=== PATIENT | male | born 1985 | race Caucasian/White ===

== ENCOUNTER 2018-02-25 11:04 | Outpatient (CLI) | payer OTHER | END 2018-02-25 11:05 | disposition home or self-care (01) | LOC: SC 11:04 | PROVIDERS: ATTEND Internal Medicine Pulmonary Disease | DX: G47.10 Hypersomnia, unspecified (principal); R06.83 Snoring; G47.8 Other sleep disorders | CPT/HCPCS: 99203; 99212 ==

== ENCOUNTER 2018-04-01 20:25 | Outpatient (CLI) | payer OTHER | END 2018-04-01 20:26 | disposition home or self-care (01) | LOC: SC 20:25 | PROVIDERS: ATTEND Internal Medicine Pulmonary Disease | DX: R06.83 Snoring (principal); G47.61 Periodic limb movement disorder | CPT/HCPCS: 95810 ==

== ENCOUNTER 2018-04-14 15:25 | Outpatient (CLI) | payer OTHER | END 2018-04-14 15:26 | disposition home or self-care (01) | LOC: SC 15:25 | PROVIDERS: ATTEND Internal Medicine Pulmonary Disease | DX: G47.10 Hypersomnia, unspecified (principal) | CPT/HCPCS: 99212; 99213 ==

== ENCOUNTER 2018-05-20 09:11 | Outpatient (CLI) | payer OTHER | END 2018-05-20 09:12 | disposition home or self-care (01) | LOC: SC 09:11 | PROVIDERS: ATTEND Internal Medicine Pulmonary Disease | DX: G47.10 Hypersomnia, unspecified (principal) | CPT/HCPCS: 99212; 99213 ==

== ENCOUNTER 2019-07-24 07:43 | Emergency (ER) | payer OTHER ==
--- NOTE | 2019-07-24 07:57 | ED Physician Documentation ---
PD HPI CHEST PAIN - Stated complaint Stated Complaint: CHEST PX/SOA - Chief complaint Chief Complaint: General - History obtained from History obtained from: Patient - History of Present Illness Timing - onset: Last night (Onset in bed without any noted trauma of pain in the right side of the chest worse with deep breathing. It increased today. He has had a little bit of congestion and mild cough but not feeling really sick per se. The pain increased today and is hurting on the right side into his back. He denies any prior similar episodes.) Timing - onset during: Sleep, Rest Timing - details: Gradual onset, Still present Quality: Aching, Sharp, Pain Location: Substernal, Right chest Radiation: Neck (right side), Back Improved by: Rest, Other (sitting up) Worsened by: Inspiration, Movement, Position (lying flat is worse) Associated symptoms: Shortness of air, Cough. No: Nausea, Vomiting, Feeling faint / dizzy, Palpitations Similar symptoms before: Has not had sx before Recently seen: Not recently seen Review of Systems Constitutional: denies: Fever, Chills, Myalgias Nose: reports: Congestion. denies: Rhinorrhea / runny nose Throat: denies: Sore throat Respiratory: reports: Cough (mild overnight into today) GI: denies: Abdominal Pain, Nausea, Vomiting Skin: denies: Rash Neurologic: denies: Generalized weakness, Near syncope, Headache PD PAST MEDICAL HISTORY - Past Medical History Cardiovascular: None Respiratory: None Endocrine/Autoimmune: None GI: None : None HEENT: Chronic sinusitis Psych: None Musculoskeletal: Chronic back pain Derm: None - Past Surgical History Ortho: Other - Present Medications Home Medications: Ambulatory Orders Medication Instructions Recorded Confirmed Cetirizine [ZyrTEC] 10 mg PO DAILY 03/27/17 03/27/17 Duloxetine HCl 60 mg PO BID 03/27/17 03/27/17 Magnesium Oxide [Magnesium] 500 mg PO DAILY 03/27/17 03/27/17 Pregabalin [Lyrica] 150 mg PO BID 03/27/17 03/27/17 Dextroamphetamine/Amphetamine 15 mg PO 07/24/19 [Adderall 15 mg Tablet] Hydrocodone/Acetaminophen [[place] 1 each PO Q6H PRN #15 tablet 07/24/19 5-325 Tablet] Naproxen 375 mg PO BID #20 tablet 07/24/19 Verapamil [[place]] 120 mg PO BID 07/24/19 07/24/19 dexAMETHasone [Decadron] 4 mg PO DAILY #5 tablet 07/24/19 - Allergies Allergies/Adverse Reactions: Allergies Allergy/AdvReac Type Severity Reaction Status Date / Time No Known Drug Allergies Allergy Verified 07/24/19 07:48 - Family History Family history: denies: Aortic aneursym, Aortic dissection PD ED PE NORMAL - Vitals Vital signs reviewed: Yes - General General: Alert and oriented X 3, Well developed/nourished, Other (appears uncomfortable with breathing) - HEENT HEENT: Moist mucous membranes, Pharynx benign - Neck Neck: Supple, no meningeal sign, No adenopathy, No JVD, No bruit - Cardiac Cardiac: No murmur. No: RRR (tachycardic without murmur nor rub) - Respiratory Respiratory: Clear bilaterally, Other (guarded/splinted breathing. ) - Abdomen Abdomen: Soft, Non tender - Male Male : Deferred - Rectal Rectal: Deferred - Back Back: No CVA TTP - Derm Derm: Normal color, Warm and dry - Extremities Extremities: No tenderness to palpate, Normal ROM s pain - Neuro Neuro: Alert and oriented X 3, No motor deficit, Normal speech Results - Vitals Vitals: Vital Signs - 24 hr 07/24/19 07/24/19 07/24/19 07:45 08:29 09:31 Temperature 36.9 C Heart Rate 126 H 117 H 123 H Respiratory 18 13 20 Rate Blood Pressure 128/106 H 145/101 H 127/90 H O2 Saturation 96 95 96 07/24/19 10:11 Temperature Heart Rate 120 H Respiratory 17 Rate Blood Pressure 132/89 H O2 Saturation 94 Oxygen O2 Source Room air - EKG (time done) 08:01 Rate: Rate (enter#) (121) Rhythm: Sinus tachycardia [place]: Normal Intervals: Normal [facility] QRS: Normal Ischemia: Normal ST segments. No: ST elevation c/w ischemia, ST depression - Labs Labs: Laboratory Tests 07/24/19 07/24/19 07/24/19 08:20 08:20 08:20 WBC 13.2 H RBC 4.50 L Hgb 13.8 L Hct 41.1 L MCV 91.3 MCH 30.7 MCHC 33.6 RDW 12.3 Plt Count 332 MPV 9.2 Neut # (Auto) 10.9 H Lymph # (Auto) 1.3 L [place] # (Auto) 0.9 Eos # (Auto) 0.1 Baso # (Auto) 0.1 Absolute Nucleated RBC 0.00 Nucleated RBC % 0.0 D-Dimer Sodium 135 Potassium 4.1 Chloride 101 Carbon Dioxide 23 Anion Gap 11.0 BUN 16 Creatinine 0.8 Estimated GFR (MDRD) 111 Glucose 109 H Calcium 8.9 Total Bilirubin 0.5 AST 25 ALT 22 Alkaline Phosphatase 57 Troponin I High Sens < 2.3 L Total Protein 7.4 Albumin 4.2 Globulin 3.2 Albumin/Globulin Ratio 1.3 Lipase 30 07/24/19 08:20 WBC RBC Hgb Hct MCV MCH MCHC RDW Plt Count MPV Neut # (Auto) Lymph # (Auto) [place] # (Auto) Eos # (Auto) Baso # (Auto) Absolute Nucleated RBC Nucleated RBC % D-Dimer < 200.0 L Sodium Potassium Chloride Carbon Dioxide Anion Gap BUN Creatinine Estimated GFR (MDRD) Glucose Calcium Total Bilirubin AST ALT Alkaline Phosphatase Troponin I High Sens Total Protein Albumin Globulin Albumin/Globulin Ratio Lipase - Rads (name of study) chest xray Radiology: Prelim report reviewed (normal), See rad report PD MEDICAL DECISION MAKING - ED course Complexity details: reviewed results (EKG and chest x-ray are normal. He is tachycardic but not hypoxic. His heart rate improves after some pain medicine. His troponin is normal. D-dimer is also negative. I have no more serious causes to consider at this time. I presume some pleurisy related to his recent cough and congestion. At this point there is no signs of myocarditis, AR, pneumothorax, effusion, pneumonia, PE or vascular process.), considered differential, d/w patient Departure - Departure Disposition: 01 Home, Self Care Clinical Impression: Pleuritic chest pain Condition: Stable Record reviewed to determine appropriate education?: Yes Instructions: ED Chest Pain Pleurisy Follow-Up: FRANCESCA PHILIPPE DO [Primary Care Provider] - Prescriptions: dexAMETHasone [Decadron] 4 mg PO DAILY #5 tablet Hydrocodone/Acetaminophen [[place] 5-325 Tablet] 1 each PO Q6H PRN #15 tablet PRN Reason: Pain Naproxen 375 mg PO BID #20 tablet Comments: Presume some inflammation or irritation of either the lung surface (pleurisy) or musculoskeletal in the chest. These would be treated with anti-inflammatories (naproxen nonsteroidal anti-inflammatory and Decadron steroid) over the short- term being several days to week. Add Tylenol or hydrocodone if needed for pain. Activity as tolerated based on comfort. Recheck if not improved well over the next couple of days and sooner if worsening or other symptoms develop other than perhaps chest cold type symptoms. Discharge Date/Time: 07/24/19 10:36
[2019-07-24] MEDS ORDERED: KETOROLAC 30 MG/ML VIAL IVP STA (08:09)
[2019-07-24] MEDS ORDERED: MORPHINE 10 MG/ML VIAL IVP STA (08:09)
[2019-07-24 08:31] LABS: BASOPHILS # (AUTO) 0.1 10^3/uL (0.0-0.1); BASOPHILS % (AUTO) 0.4 %; EOSINOPHILS # (AUTO) 0.1 10^3/uL (0.0-0.7); EOSINOPHILS % (AUTO) 0.5 %; HGB - HEMOGLOBIN 13.8 g/dL (14.0-18.0); LYMPHOCYTES # (AUTO) 1.3 10^3/uL (1.5-3.5); LYMPHOCYTES % (AUTO) 9.5 %; MEAN CORPUSCULAR HEMOGLOBIN 30.7 pg (27.0-31.0); MEAN CORPUSCULAR HGB CONC 33.6 g/dL (32.0-36.0); MEAN CORPUSCULAR VOLUME 91.3 fL (80.0-94.0); MEAN PLATELET VOLUME 9.2 fL (7.4-11.4); MONOCYTES # (AUTO) 0.9 10^3/uL (0.0-1.0); MONOCYTES % (AUTO) 6.7 %; NEUTROPHILS # (AUTO) 10.9 10^3/uL (1.5-6.6); NEUTROPHILS % (AUTO) 82.4 %; PLT - PLATELET COUNT 332 10^3/uL (130-450); RED CELL DISTRIBUTION WIDTH 12.3 % (12.0-15.0); WHITE BLOOD COUNT 13.2 x10^3/uL (4.8-10.8)
--- NOTE | 2019-07-24 08:38 | XRAY Report ---
Reason: chest pain onset last night, mostly right Procedure Date: 07/24/2019 Accession Number: [id number] / [id number] Procedure: XR - Chest 2 View X-Ray CPT Code: 74774 Final Report FULL RESULT: EXAM: CHEST RADIOGRAPHY EXAM DATE: 07/24/2019 08:29 AM. CLINICAL HISTORY: Chest pain onset last night, mostly right. COMPARISON: None. TECHNIQUE: 2 views. FINDINGS: Lungs/Pleura: No focal opacities evident. No pleural effusion. No pneumothorax. Normal volumes. Mediastinum: Heart and mediastinal contours are unremarkable. Other: None. IMPRESSION: No evidence for acute cardiopulmonary process. [facility]
[2019-07-24 08:52] LABS: ALBUMIN 4.2 g/dL (3.2-5.5); ALBUMIN/GLOBULIN RATIO 1.3 (1.0-2.2); BILIRUBIN,TOTAL 0.5 mg/dL (0.2-1.0); CALCIUM 8.9 mg/dL (8.5-10.3); CREATININE 0.8 mg/dL (0.6-1.2); TOTAL PROTEIN 7.4 g/dL (6.7-8.2)
[2019-07-24] MEDS ORDERED: HYDROmorphone 2 MG/ML VIAL IVP STA (09:38)
[2019-07-24] MEDS ORDERED: DEXAMETHASONE 10 MG/ML VIAL IVP STA (09:38)
[2019-07-24 10:12] VITALS: BP 132/89
== END 2019-07-24 10:36 | disposition home or self-care (01) ==
LOC: ED 07:43
DX: R07.81 Pleurodynia (principal); R00.0 Tachycardia, unspecified
CPT/HCPCS: 36415; 71046; 80053; 83690; 84484; 85025; 85379; 93005; 96374; 96375; 99284; 99285; J1170